=== PATIENT | male | born 2000 | race Caucasian/White ===

== ENCOUNTER 2019-08-15 06:56 | Inpatient (IN) | payer MEDICAID ==
[~2019-08-15] VITALS: Ht 165.1 cm; Wt 65.0 kg
[2019-08-15 07:02] VITALS: Ht 165.1 cm; Wt 65.0 kg
--- NOTE | 2019-08-15 07:05 | NUR ---
PT BIB [facility] FOR R HIP PAIN. PER EMS, PT IS HOMELESS AND USED A CALLBOX TO CALL 911. PT REPORTS 9/10 SHARP NON-RADIAITING HIP PAIN ON THE RIGHT SIDE. PT USING HANDS TO LIFT LEG ONTO GURNEY. PT REPORTS NO OTHER COMPLAINTS. AWAITING MSE. NAD NOTED AT THIS TIME.
--- NOTE | 2019-08-15 07:11 | NUR ---
REPORT GIVEN TO LINETTE MALONEY TO ASSUME PT CARE
[2019-08-15 07:46] LABS: BASOPHIL % 0.4 % (0-2); PLATELET COUNT 254 x10^3mcL (130-400); RED CELL DISTRIBUTION WIDTH 12.8 % (11.5-14.5)
--- NOTE | 2019-08-15 08:03 | NUR ---
PROVIDED PT WITH GOWN, CLEAN SOCKS AND INSTRUCTED TO CHANGE INTO DRY UNDERWEAR WHICH PT STATES HE HAS A PAIR IN HIS BACK PACK. PER PT HAS BEEN IN THE BENITES FOR 1 DAY. GIVEN WARM BLANKETS. UPON CHANGING SOCKS NOTICED A LACERATION IN STAGES OF HEALING ON HIS RIGHT BALL OF HIS FOOT. ALSO NOTICED A LACERATION TO HIS LEFT FOOT. FEET ARE MACERATED. INSTRUCTED TO KEEP SOCKS OFF TILL THEY DRY FOR A BIT AND PUT THEM ON WHEN NEEDING TO AMBULATE. PT AGREES. STATES NOW HAS PAIN TO HIS LEFT ANAND WELL. REPORTED ALL FINDINGS TO MD KENT. AWAITING NEW ORDERS
[2019-08-15 08:12] LABS: CALCIUM 9.6 mg/dL (8.5-10.1); CARBON DIOXIDE 27.3 mmol/L (21-32); CHLORIDE SERUM 100 mmol/L (98-107); CREATININE SERUM 1.1 mg/dL (0.7-1.3); GFR1 > 60 mL/min; GLUCOSE SERUM 66 mg/dL (74-106); POTASSIUM SERUM 3.7 mmol/L (3.5-5.1); SODIUM SERUM 143 mmol/L (136-145)
[2019-08-15 08:15] LABS: ALBUMIN 4.9 g/dL (3.4-5.0); ALKALINE PHOSPHATASE 89 U/L (46-116); ALT/SGPT 112 U/L (16-63); AST/SGOT 400 U/L (15-37); BILIRUBIN TOTAL 2.2 mg/dL (0.20-1.00)
--- NOTE | 2019-08-15 08:56 | NUR ---
AWAITING BLOOD CULTURE DRAW
--- NOTE | 2019-08-15 09:06 | NUR ---
LAB AT BEDSIDE FOR BLOOD CULTURE DRAW
--- NOTE | 2019-08-15 09:07 | NUR ---
DR KENT AT BEDSIDE FOR DISCUSSION OF POC AND RESULTS
[2019-08-15] MEDS ORDERED: ABILIFY5 M1 (09:21)
--- NOTE | 2019-08-15 09:21 | NUR ---
PT SITTING UP ON GURNEY EATING BREAKFAST.
[2019-08-15 09:37] LABS: AMPHETAMINE QUAL UR NONE DETECTED (See below)
--- NOTE | 2019-08-15 10:12 | NUR ---
T-DAP IMMUNIZATION CONSENT FORM SIGNED AND PLACED IN PT CHART
[2019-08-15 10:16] LABS: UA SPECIFIC GRAVITY >=1.030 (1.005-1.035); microscopic required? YES; urine erythrocyte NEGATIVE (NEGATIVE)
--- NOTE | 2019-08-15 10:24 | NUR ---
REPORT GIVEN TO JO MALONEY TO RESUME CARE OF PT
[2019-08-15 11:00] VITALS: BP 128/65
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
--- NOTE | 2019-08-15 11:54 | NUR ---
ASKED THE PATIENT IF FAMILY/SISTER AWARE THAT HE IS ADMITTED IN THE HOSPITAL, PATIENT STATES "UM MOST LIKELY". OFFERED TO CALL SISTER, PATIENT STATES "NO ITS OKAY". PHONE PLACED WITHIN REACH AND EDUCATED ON HOW TO USE, VERBALIZED UNDERSTANDING. CALL LIGHT WITHIN REACH.
[2019-08-15 16:50] VITALS: BP 112/59
--- NOTE | 2019-08-15 18:48 | NUR ---
PATIENT WITH NO SIGN OF ACUTE DISTRESS. STATES PAIN TO RT HIP STILL TOLERABLE AT THIS TIME. NO OTHER SIGNFICANT CHANGE IN CONDITION. IV SITE WNL. WILL CONT TO MONITOR AND ENDORSE TO NOC NURSE.
--- NOTE | 2019-08-15 19:24 | NUR ---
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
--- NOTE | 2019-08-15 20:49 | NUR ---
PM MEDS GIVEN,TYLENOL GIVEN RHABDO.ASSIST TO RESTROOM R/T IVF.GEN WEAKNESS.
[2019-08-15 20:51] VITALS: BP 130/60
--- NOTE | 2019-08-15 23:37 | NUR ---
NS AT 250 CC/ HOUR INFUSING WELL,[place] [phone] ON ADMIT.
[2019-08-16 04:33] VITALS: BP 117/66
--- NOTE | 2019-08-16 05:16 | NUR ---
I AND O MEASURED.NO DISTRESS THIS SHIFT.WILL CONTINUE PLAN OF CARE.
[2019-08-16 06:47] LABS: BASOPHIL % 0.1 % (0-2); PLATELET COUNT 188 x10^3mcL (130-400); RED CELL DISTRIBUTION WIDTH 13.3 % (11.5-14.5)
[2019-08-16 07:08] LABS: CALCIUM 8.2 mg/dL (8.5-10.1); CARBON DIOXIDE 27.6 mmol/L (21-32); CHLORIDE SERUM 107 mmol/L (98-107); CREATININE SERUM 0.6 mg/dL (0.7-1.3); GFR1 > 60 mL/min; GLUCOSE SERUM 80 mg/dL (74-106); SODIUM SERUM 144 mmol/L (136-145)
[2019-08-16 07:11] LABS: POTASSIUM SERUM 2.9 mmol/L (3.5-5.1)
[2019-08-16 08:45] VITALS: BP 130/70
[2019-08-16] MEDS ORDERED: BACOO OU (10:42)
[2019-08-16] MEDS ORDERED: ZOFRAN8 MG PO (10:45)
[2019-08-16] MEDS ORDERED: DEPAKOTE ER250 M1 PO (10:45)
[2019-08-16] MEDS ORDERED: TRAZODONE50 M1 PO (10:46)
[2019-08-16] MEDS ORDERED: ARIPIPRAZOLE5 MG PO (10:46)
[2019-08-16 16:03] VITALS: BP 130/78
--- NOTE | 2019-08-16 19:10 | NUR ---
REPORT GIVEN TO DIRECTOR OF PEOPLE NURSE AT THE BEDSIDE, PLAN OF CARE DISCUSSED WITH PATIENT, CARE ENDORSED.
--- NOTE | 2019-08-16 19:10 | NUR ---
REC'D PT FROM DAY NURSE. PT SITTING AT THE SIDE OF THE BED. AAOX4, SPEECH CLEAR, FOLLOWS COMMANDS. MED SURG, NO TELE. DENIES CP, DIZZINESS, OR PALPITATIONS. DENIES RESP DISTRESS OR SOB. BREATHING EVEN/UNLABORED ON RA. ABD SOFT/ROUND/NONTENDER. DENIES N/V. VOIDING FREELY. AMBULATORY. DENIES PAIN TO R HIP AND R LEG AT THIS TIME. OPEN SKIN TO R BALL OF FOOT WITH RED WOUND BED SURROUNDED BY WHITE MACERATED SKIN. L BALL OF FOOT WITH MACERATED SKIN. FEET COVERED WITH SOCKS. IV TO LAC PATENT AND INFUSING, SITE WNL. CALL LIGHT WITHIN REACH, BED AT LOWEST POSITION. WILL CONTINUE TO MONITOR.
[2019-08-16 19:50] VITALS: BP 128/87
--- NOTE | 2019-08-17 00:23 | NUR ---
PT RESTING IN BED WITH EYES CLOSED. NO SIGNS OF DISTRESS NOTED. BREATHING EVEN/UNLABORED ON RA. CALL LIGHT WITHIN REACH, BED AT LOWEST POSITION. WILL CONTINUE TO MONITOR.
--- NOTE | 2019-08-17 05:37 | NUR ---
PT RESTING IN BED WITH EYES CLOSED. AWAKENS WITH VERBAL STIMULI. BREATHING EVEN/UNLABORED ON RA. PT DENIES ANY PAIN. NO EPISODES OF DIARRHEA TODAY. PT ONLY HAD LIGHT LOWER ABD CRAMPING EARLIER. NO SIGNIFICANT CHANGES. CALL LIGHT WITHIN REACH, BED AT LOWEST POSITION. WILL ENDORSE TO DAY NURSE.
[2019-08-17 05:41] VITALS: BP 133/78
--- NOTE | 2019-08-17 07:00 | NUR ---
RECEIVED PT FROM SURVEYING OR SPATIAL SCIENCE TECHNICIAN NURSE. PT RESTING IN BED, AOX4, RESP E/U ON RA, NO ACUTE DISTRESS NOTED AT THIS TIME. IV TO LAC W/ NO SIGNS OF INFILTRATION, IVF INFUSING WELL. BED IN LOWEST POSITION AND CALL LIGHT WITHIN REACH. WILL CONTINUE TO MONITOR.
[2019-08-17 07:45] LABS: CALCIUM 8.4 mg/dL (8.5-10.1); CARBON DIOXIDE 26.9 mmol/L (21-32); CHLORIDE SERUM 108 mmol/L (98-107); CREATININE SERUM 0.6 mg/dL (0.7-1.3); GFR1 > 60 mL/min; GLUCOSE SERUM 86 mg/dL (74-106); POTASSIUM SERUM 3.9 mmol/L (3.5-5.1); SODIUM SERUM 145 mmol/L (136-145)
[2019-08-17 07:46] LABS: BASOPHIL % 0.5 % (0-2); PLATELET COUNT 153 x10^3mcL (130-400); RED CELL DISTRIBUTION WIDTH 13.5 % (11.5-14.5)
[2019-08-17 09:04] VITALS: BP 138/72
--- NOTE | 2019-08-17 11:27 | NUR ---
PT RESTING IN BED, AOX4, RESP E/U ON RA. CALM AND COOPERATIVE W/ CARE AT THIS TIME, NO ACUTE DISTRESS NOTED. BED IN LOWEST POSITION AND CALL LIGHT WITHIN REACH.
--- NOTE | 2019-08-17 12:07 | NUR ---
1. Recommend continuing regular diet. 2. Recommend Vitamin C 500 mg/day for wound healing. Discussed recommendations with AI Rutledge
--- NOTE | 2019-08-17 12:07 | NUR ---
Initial Nutrition Assessment: 232/B NORMA MARY IA HR Dx: Rhabdomyolosis, dehydration PMHx: Schizoaffective disorder PSHx: none Labs: BUN 4.0L, CREAT 0.6L, CA 8.4L Meds: Abilify, Colace, Tylenol, zofran Diet: Regular PO intake since admission: (08/17) breakfast 100%, (08/16) dinner 100%, breakfast 90%, (08/15) dinner 20% Ht: 165.1 cm (65") Wt: 65 kg (143#) BMI: 23.8 kg/m2 Bed scale: 137.4# (62 kg) IBW: 136# (62 kg) %IBW: 105 UBW: pt does not remember Age: 18/M Food Allergies: NKFA Skin: open wound to bottom of right foot Huy: 20 Edema: none GI: loose stools Last BM: 08/17 Pt is a 18-year-old male presented here for evaluation of confusion and Hip pain. RD Note (08/17): Patient was alert and answered all my questions. Patient said that his appetite is much better now and he ate almost 100% breakfast this morning. Per RN Sohail, pt has an open blister but it is starting to turn into a scab and is healing. Patient said that he was on 'zinc' supplement at some other facility for his wounds. FNS received consult for 'open blister on bottom of foot'. Problem with: N/V/D/C: none at this time Problems with: Chewing: Swallowing: none Current appetite: good Recent wt change: unable to access as pt not aware %wt change: n/a Vitamin/Supplement use: vitamins for cuticle strength (nails + hair), hibiscus tea for weight gain? Special diet at home: Regular Physical activity: walking 2-3 miles per day per patient Nutrition education given: none at this time. Patient did not have any diet/nutrition related questions at this time. Food-drug interactions: Colace: high fiber w/ 8485-0988 ml fluid/day Education given: n/a Estimated Nutritional Needs Based on current body weight (62 kg) Energy: 2644-6603 kcal/day (25-30 kcal/kg for maintenance) Protein: 74-86 g/day (1.2-1.4 g/kg to preserve LBM, wound) Fluid: 1680-7824 mL/day (1 mL/kcal) Nutrition Diagnosis: 1. Increased nutrient needs related to open blister/wound as evidenced by estimated protein needs. Intervention 1. Recommend continuing regular diet. 2. Recommend Vitamin C 500 mg/day for wound healing. Discussed recommendations with NEPHROLOGY NURSE Maty Monitor/Evaluate Goal: PO intake at least 75% of estimated needs Monitor: PO intake, Labs, GI function F/U in 7 days as low risk 08/24
[2019-08-17 17:13] VITALS: BP 137/87
--- NOTE | 2019-08-17 18:17 | NUR ---
PT RESTING IN BED, AOX4, RESP E/U ON RA. CALM AND COOPERATIVE AT THIS TIME. DENIES PAIN TO BLISTERS TO BOTTOM OF FEET, COVERED W/ SOCKS. NO ACUTE DISTRESS NOTED. IV TO LAC W/ NO SIGNS OF INFILTRATION, IVF INFUSING WELL. BED IN LOWEST POSITION AND CALL LIGHT WITHIN REACH. WILL ENDORSE TO ONCOMING NURSE.
--- NOTE | 2019-08-17 19:33 | NUR ---
RECEIVED PATIENT IN BED AWAKE, ALERT AND ORIENTED WITH NO C/O RT HIP PAIN AT THIS TIME. BREATHING EASY AND NONLABOR SATTING AT 98% RA. ABDOMEN SOFT AND NONTENDER WITH ACTIVE BS. IV TO LAC INTACT AND INFUSING WELL. WILL CONTINUE TO MONITOR. CALL LIGHT WITHIN REACH.
[2019-08-17 20:55] VITALS: BP 135/79
--- NOTE | 2019-08-17 23:50 | NUR ---
APPEARS TO BE SLEEPING THIS TIME BREATHING EASY AND NONLABOR. WILL CONTINUE TO MONITOR.
[2019-08-18 04:53] VITALS: BP 133/94
--- NOTE | 2019-08-18 05:05 | NUR ---
SLEPT AT LONG INTERVALS, NO INDICATION OF DISCOMFORT NOTED THE ENTIRE SHIFT. ALL NEEDS ATTENDED.
[2019-08-18 07:08] LABS: CALCIUM 9.6 mg/dL (8.5-10.1); CARBON DIOXIDE 29.2 mmol/L (21-32); CHLORIDE SERUM 104 mmol/L (98-107); CREATININE SERUM 0.7 mg/dL (0.7-1.3); GFR1 > 60 mL/min; GLUCOSE SERUM 88 mg/dL (74-106); POTASSIUM SERUM 3.7 mmol/L (3.5-5.1); SODIUM SERUM 141 mmol/L (136-145)
[2019-08-18 09:16] VITALS: BP 141/92
--- NOTE | 2019-08-18 09:31 | NUR ---
Recieved report from night nurse at 0700. Patient observed sitting upright in bed. Patient appears calm and is awake, alert, and oriented.
--- NOTE | 2019-08-18 12:50 | NUR ---
AT 1240 - IV IN LAC CAME OUT AFTER PATIENT HAD SHOWER. IV CATHETER REMOVED INTACT AND NEW IV INSERTED IN L [facility]. IV INFUSION OF NS RESUMED AT 250 ML/HR. PATIENT SITTING IN CHAIR EATING LUNCH.
--- NOTE | 2019-08-18 15:38 | NUR ---
Patient is walking around the unit. No complaints of pain.
--- NOTE | 2019-08-18 16:00 | NUR ---
RECEIVED CALL FROM PATIENT'S SISTER. PATIENT SPOKE WITH HER PER PHONE AT LENGTH.
[2019-08-18 17:08] VITALS: BP 132/81
--- NOTE | 2019-08-18 18:04 | NUR ---
PATIENT VOMITED UNDIGESTED FOOD AFTER EATING DINNER. WILL MEDICATED WITH ZOFRAN PER EMAR.
--- NOTE | 2019-08-18 19:30 | NUR ---
PT RECIEVED FROM DAY NURSE. PT RESTING IN BED AT THIS TIME. DENIES PAIN OR DISCOMFORT. PT A/O X4, CALM AND COOPERATIVE AT THIS TIME. PT MS, DENIES CP, NV, DIZZINESS, OR PALPATATIONS. PALPABLE PULSES, EDEMA NOTED. BREATHING E/U ON RA. DENIES SOB. ABD SOFT AND ROUND, DENIES PAIN TO PALPATATION. GENERALIZED WEAKNESS, AMBULATES AT BASELINE. HERB FEET BILSTERS NOTED. COVERED WITH SOCKS AT THIS TIME. LH IV, CDI AND INFUSING. BED AT LOWEST POSITION. CALL LIGHT WITHIN REACH. WILL CONTINUE TO MONITOR.
[2019-08-18 21:04] VITALS: BP 121/70
--- NOTE | 2019-08-19 | NUR ---
PT RESTING IN BED AT THIS TIME. BREATHING E/U. NO S/S OF PAIN OR DISCOMFORT NOTED AT THIS TIME. BED AT LOWEST POSITION. CALL LIGHT WITHIN REACH. WILL CONTINUE TO MONITOR.
[2019-08-19 05:43] VITALS: BP 136/92
--- NOTE | 2019-08-19 06:25 | NUR ---
PT RESTING IN BED AT THIS TIME. DENIES PAIN OR DISCOMFORT. BREATHING E/U ON RA. NO SIGNS OF ACUTE DISTRESS AT THIS TIME. ALL QUESTIONS AND CONCERNS ADDRESSED THIS SHIFT. WILL ENDORSE TO DAY NURSE
[2019-08-19 08:47] VITALS: BP 142/90
--- NOTE | 2019-08-19 09:06 | NUR ---
Patient observed standing and talking on the phone. Patient says that he is not real. Patient says that he is in a spiritual realm. Patient waving his hands in front of his face and saying he is not present. Currently awaiting psych consult.
--- NOTE | 2019-08-19 12:31 | NUR ---
Performed hourly round on patient. Patient appears stable. Patient states that he spoke with social research assistant about possible discharge.
[2019-08-19 16:36] VITALS: BP 140/88
--- NOTE | 2019-08-19 18:16 | NUR ---
Patient resting comfortably in room. IV NS running at 250/hour. Will endorse to night nurse.
--- NOTE | 2019-08-19 18:52 | NUR ---
Went into patient's room to hang a bag of normal saline. Found patient on the floor crying. He requested to the desktop administrator to speak with addiction social worker and that was told that addiction social worker would come and see patient.
--- NOTE | 2019-08-19 19:28 | NUR ---
PT RECIEVED FROM DAY NURSE. SW AT BEDSIDE AT THIS TIME. PT VOICING CONCERNS ABOUT MISSING [place]. PT REASSURED THAT WE ARE DOING OUR BEST TO LOCATE LOST BEAR. DENIES PAIN OR DISCOMFORT AT THIS TIME. BREATHING E/U ON RA. NO S/S OF ACUTE DISTRESS NOTED AT THIS TIME. WILL CONTINUE TO MONITOR.
[2019-08-19 21:35] VITALS: BP 138/88
--- NOTE | 2019-08-20 00:04 | NUR ---
PT RESTING IN BED AT THIS TIME. DENIES PAIN AND DISCOMFORT AT THIS TIME. BREATHING E/U ON RA. NO SIGNS OF ACUTE DISTRESS AT THIS TIME. BED AT LOWEST POSITION. CALL LIGHT WITHIN REACH. WILL CONTINUE TO MONITOR.
[2019-08-20 06:02] VITALS: BP 135/75
--- NOTE | 2019-08-20 06:13 | NUR ---
PT RESTING IN BED AT THIS TIME. DENIES PAIN OR DISCOMFORT. BREATHING E/U ON RA. PT STATED HE IS FEELING A LOT BETTER THIS MORNING. NO SIGNS OF ACUTE DISTRESS NOTED AT THIS TIME. BED AT LOWEST POSITION. CALL LIGHT WITHIN REACH. WILL ENDORSE TO DAY NURSE.
[2019-08-20 07:23] VITALS: BP 136/89
--- NOTE | 2019-08-20 07:25 | NUR ---
RECEIVED AWAKE, ALERT AND ORIENTED, NO RESP. DISTRESS NOTED. NO C/O PAIN OR DISCOMFORT. IVF INFUSING WELL ANAD SITE CLEAR. CALL LIGHT WITHIN REACH. WILL CONTINUE WITH PLAN OF CARE.
--- NOTE | 2019-08-20 10:29 | NUR ---
C/O PAIN TO HERB FEET. MEDICATED WITH TYLENOL PER ORDER. PT AMBULATING TO HALLWAYS. NO DISTRESS NOTED.
--- NOTE | 2019-08-20 12:42 | NUR ---
PT WAS WALKING AROUND ON THE HALLWAYS, PER P.T WAS FOUND ON HIS KNEE AND STATED HIS FEET JUST GAVE UP. NO FALL WAS REPORTED. CHECKED ON PT AND IS IN NO DISTRESS. AWAKE AND ALERT. DENIES PAIN OR DSCOMFORT. NO TRAUMA NOTED. PT AGAIN STATED HIS LT LEG JUST GAVE UP. WILL NOTIFY MD AND CONT. TO MONITOR.
[2019-08-20 15:28] VITALS: BP 156/58
--- NOTE | 2019-08-20 18:40 | NUR ---
REMAINS IN NO DISTRESS, AWAKE AND ALERT. A BIT ANXIOUS AT TIMES. NO C/O PAIN OR DISCOMFORT AT THIS TIME. HL PATENT. CALL LIGHT WITHIN REACH. WILL BE ENDORSED TO INCOMING SHIFT.
[2019-08-20 19:47] VITALS: BP 121/90
--- NOTE | 2019-08-20 20:01 | NUR ---
PATIENT RECEIVED AWAKE, ALERT, ORIENTED X4. RESPIRATION EVEN AND UNLABORED, ON ROOM AIR. SALINE LOCK ON THE LEFT HAND PATENT AND INTACT. DENIES PAIN AT THIS TIME. LBM 08/19/19. VOIDING FREELY WITHOUT DIFFICULTY. AMBULATORY. HEALING BLISTERS TO FEET. WILL CONTINUE TO MONITOR.
[2019-08-21 05:35] VITALS: BP 130/83
--- NOTE | 2019-08-21 06:01 | NUR ---
PATIENT AWAKE, WALKING AROUND THE HALLWAY. RESPIRATION EVEN AND UNLABORED, ON ROOM AIR. DENIES DISCOMFORT/PAIN. SALINE LOCK TO RT FOREARM PATENT AND INTACT. ASSISTED WITH NEEDS. SAFETY OBSERVED. PLACED BED IN THE LOWEST POSITION. PLACED CALL LIGHT WITHIN REACH AT ALL TIMES.
[2019-08-21 07:30] VITALS: BP 138/78
--- NOTE | 2019-08-21 07:30 | NUR ---
PT ENDORSE TO ME THIS MORNING, SITTING UP IN BED/ JUST CAME BACK FROM A WALK. AA/O X4, BREATHING EVEN AND UNLABORED ON RA, NO ACUTE RESP DISTRESS OR SOB NOTED. MEDSURG/ DENIES ANY CP OR PRESSURE. VOIDS FREELY. AMB. IV TO THE RFA INTACT AND PATENT/HEPLOCKEDN, NO REDNESS OR SWELLING NOTED. WILL CONTINUE TO MONITOR.
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
[2019-08-21 09:18] VITALS: BP 138/78
--- NOTE | 2019-08-21 14:20 | NUR ---
PT AMB 15 X AROUND NURSING STATION WITH 1:1 BY HIS SIDE. TOLERATED 100% OF HIS LUNCH. WILL CONTINUE TO MONITOR.
--- NOTE | 2019-08-21 15:29 | NUR ---
PT LAYING IN BED RESTING, DENIES ANY FEELING OF WANTING TO HARM SELF OR OTHERS, 1:1 AT BEDSIDE. WILL CONTINUE TO MONITOR.
[2019-08-21 15:45] VITALS: BP 130/78
--- NOTE | 2019-08-21 17:24 | NUR ---
PT IS NOW UP FROM BED DECIDED TO WALK AROUND [facility] X5 TIMES. WILL CONTINUE TO MONITOR.
--- NOTE | 2019-08-21 18:53 | NUR ---
NO ACUTE CHANGES AT THIS TIME. NO ACUTE RESP DISTRESS OR SOB NOTED .1 :1 AT BEDSIDE. PT SHOWERED/TOLERATED WELL. DENIES FEELING OF HARMING SELF AT THIS TIME. WILL ENDORSE TO INCOMING RN.
--- NOTE | 2019-08-21 19:20 | NUR ---
CARE ASSUMED FROM OUTGOING RN. PT RESTING COMFORTABLY IN BED. SITTER AT BEDSIDE. NO ACUTE DISTRESS NOTED. EVEN AND UNLABORED RESPIRATIONS ON RA. MEDSURG PT. IVL INTACT. NO C/O PAIN AT THIS TIME. BED IN LOWEST POSITION. SIDE RAILS UPX2. CALL LIGHT WITHIN REACH. WILL CONTINUE TO MONITOR.
--- NOTE | 2019-08-22 00:43 | NUR ---
PT TRANSFERRED TO 248A. RESTING COMFORTABLY IN BED. SITTER AT BEDSIDE. NO ACUTE DISTRESS NOTED. EVEN AND UNLABORED RESPIRATIONS ON RA. BED IN LOWEST POSITION. SIDE RAILS UPX2. CALL LIGHT WITHIN REACH. WILL CONTINUE TO MONITOR.
[2019-08-22 05:11] VITALS: BP 132/74
--- NOTE | 2019-08-22 06:51 | NUR ---
PT SLEPT COMFORTABLY IN INTERVALS THROUGHOUT THE SHIFT. SITTER AT BEDSIDE. ALL NEEDS TENDED TO AND MET. ALL SCHEDULED MEDICATIONS GIVEN. C/O LEFT ANAND PAIN MEDICATED PER EMAR. BED IN LOWEST POSITION. SIDE RAILS UPX2. CALL LIGHT WITHIN REACH. WILL ENDORSE TO ONCOMING SHIFT.
--- NOTE | 2019-08-22 07:30 | NUR ---
PT ENDORSE TO ME THIS MORNING, LAYING IN BED RESTING. AA/O X4. BREATHING EVEN AND UNLABORED ON RA, NO ACUTE RESP DISTRESS OR SOB NOTED. MEDSURG. DENIES ANY CP OR PRESSURE. REAMINS 1:1 PENDING PSYCH CONSULT. VOIDS FREELY. AMB. IV TO THE RFA INTACT AND PATENT/ HEPLOCKED. CALL LIGHT IN REACH. BED BY NURSING STATION. WILL CONTINUE TO MONITOR.
[2019-08-22 08:35] VITALS: BP 134/81
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
--- NOTE | 2019-08-22 10:29 | NUR ---
PT STATING HE FEELS ANXIOUS, MOBILE WEB APPLICATION DEVELOPER ALYSSA MADE AWARE, MEDICATED PER EMAR.1:1 AT BEDSIDE.
--- NOTE | 2019-08-22 17:32 | NUR ---
PT IS C/O FEELING ANXIOUS, MEDICATED PER EMAR.
[2019-08-22 18:11] VITALS: BP 143/84
--- NOTE | 2019-08-22 18:55 | NUR ---
NO ACUTE CHANGES AT THIS TIME. DR. STEVENS PLACED PT ON 5150 HOLD. IV TO THE RFA INTACT AND PATENT/ HEPLOCKED. WILL ENDORSE TO INCOMING R.N.
--- NOTE | 2019-08-22 19:38 | NUR ---
PT RECIEVED AAO REG RESP NO SOB V/S STABLE,KEPT CLEAN AND DRY TO TOUCH, PT HAS A SITTER IN THE ROOM,KEPT CLEAN AND DRY TO TOUCH,CALL LIGHT EASY REACHED AND WILL CONTINUE TO MONITOR.
[2019-08-22 20:49] VITALS: BP 137/81
--- NOTE | 2019-08-23 02:31 | NUR ---
PT RESTING AT THIS TIME AND WILL CONTINUE TO MONITOR.
[2019-08-23 06:19] VITALS: BP 109/71
--- NOTE | 2019-08-23 06:27 | NUR ---
PT HAD A RESTING NIGHT NO CHANGE AT THIS TIME AND WILL CONTINUE TO MONITOR.
--- NOTE | 2019-08-23 07:15 | NUR ---
AAO X4.PT APPEARS TO BE ANXIOUS. PT STILL SUICIDAL.1:1 SITTER AT BEDSIDE FOR SAFETY.PT ON 5150 HOLD.LUNGS CLEAR.PT NONE TELE.IV SALINE LOCKED.CALL LIGHT WITHIN REACH.INSTRUCTED TO CALL FOR ANY PAIN/DISCOMFORT.WILL CONTINUE TO MONITOR.
[2019-08-23 08:54] VITALS: BP 113/64
[2019-08-23] MEDS ORDERED: RISPERDAL1 M1 PO (11:22)
--- NOTE | 2019-08-23 15:38 | NUR ---
Called the following facilities: [facility]enn[facility] s/w Sondra, packet fax for review [facility] s/w Levar, packet fax for review [facility] s/w Kate, packet fax for review [facility] s/w Luiza, packet fax for wait list [facility] s/w Fatimah pact fax for wait list [facility] s/w Thanh, did referral for placement [facility] -fax [place] s/w Reji packet fax for review
--- NOTE | 2019-08-23 16:58 | NUR ---
SPOKE WITH PARKER AT [facility],GAVE HER AN UPDATE ON PT.ALSO TRANSFERED HER TO [facility] REQUESTED BY HER.
[2019-08-23 17:00] VITALS: BP 149/82
[2019-08-23 17:11] VITALS: BP 113/64
--- NOTE | 2019-08-23 17:56 | NUR ---
INFORMED BY CASE [facility] HIEU PT IS ACCEPTED TO [facility].PAPERWORK COMPLETED. PT WILL BE PICKED UP AT 1900
--- NOTE | 2019-08-23 18:37 | NUR ---
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
--- NOTE | 2019-08-23 19:19 | NUR ---
SPOKE WITH KADIE HORTA'S SISTER.INFORMED HER THAT PT IS TRANSFERED TO [facility].PT'S SISTER AWARE.
--- NOTE | 2019-08-23 19:22 | NUR ---
RYAN HERE TO BUSINESS ADMINISTRATION INSTRUCTOR PT.WENT DOWN VIA MELISSA ACCOMPANIED BY RYAN PAID ATTENDANT.GAVE TO THEM THE ORIGINAL 5150 HOLD FORM.ALSO HANDED TO THEM THE HOME MED OF PT.
== END 2019-08-23 19:30 | DRG 351 ==
LOC: ED 06:56 → DU 09:22 → MU 09:22 → DU 10:37 → MU 08-16 08:51
PROVIDERS: Emergency Medicine; Internal Medicine; ADMIT General Practice
DX: M62.82 Rhabdomyolysis (principal); N17.0 Acute kidney failure with tubular necrosis; F25.9 Schizoaffective disorder, unspecified; T69.021A Immersion foot, right foot, initial encounter; E86.0 Dehydration; F12.90 Cannabis use, unspecified, uncomplicated; D72.829 Elevated white blood cell count, unspecified; Z59.0 Homelessness
CPT/HCPCS: 90715; G0378; G0480; J0696; J1885; J2405; J3480; J7030; J7060; Q0092